=== PATIENT | female | born 1935 | race Caucasian/White ===

== ENCOUNTER 2018-08-30 14:32 | Inpatient (IN) | payer MEDICARE, OTHER ==
[~2018-08-30] VITALS: Ht 149.9 cm; Wt 51.8 kg
[2018-08-30] MEDS ORDERED: OXYcodone/APAP 5/325MG TABLET PO ONE ×2 (15:00→16:30)
[2018-08-30] MEDS ORDERED: ONDANSETRON ODT 4 MG PO ONE (15:00)
[2018-08-30] MEDS ORDERED: ONDANSETRON ODT 4 MG ONE (15:14)
[2018-08-30] MEDS ORDERED: OXYcodone/APAP 5/325MG TABLET ONE ×2 (15:14→16:28)
[2018-08-30 16:52] LABS: BASOPHILS # (AUTO) 0.01 x10^3/uL (0-0.1); BASOPHILS % (AUTO) 0 % (0-1); EOSINOPHILS # (AUTO) 0.06 x10^3/uL (0-0.4); EOSINOPHILS % (AUTO) 1 % (1-7); LYMPHOCYTES # (AUTO) 1.54 x10^3/uL (1-3.4); LYMPHOCYTES % (AUTO) 18 % (22-44); MD NO; MEAN CORPUSCULAR HEMOGLOBIN 32.9 pg (27.0-34.8); MEAN CORPUSCULAR HGB CONC 33.4 g/dL (32.4-35.8); MEAN CORPUSCULAR VOLUME 98.7 fL (80-100); MEAN PLATELET VOLUME 8.1 fL (7.4-10.4); MONOCYTES # (AUTO) 0.73 x10^3/uL (0.2-0.8); MONOCYTES % (AUTO) 9 % (2-9); NEUTROPHILS # (AUTO) 6.04 x10^3/uL (1.8-6.8); NEUTROPHILS % (AUTO) 72 % (42-75); PLATELET COUNT 260 x10^3/uL (130-400); RED BLOOD COUNT 4.19 x10^6/uL (3.82-5.3); RED CELL DISTRIBUTION WIDTH 13.7 % (9.6-15.2)
[2018-08-30] MEDS ORDERED: SODIUM CHLORIDE FLUSH 10ML SYR IVF ONE (17:00)
[2018-08-30 17:03] LABS: ALBUMIN 3.7 g/dL (3.4-5.0); ANION GAP 8 mmol/L (5-15); CALCIUM 9.1 mg/dL (8.5-10.1); CHLORIDE 110 mmol/L (98-107); CREATININE 0.91 mg/dL (0.55-1.02)
[2018-08-30 17:48] VITALS: BP 201/96
[2018-08-30 19:21] VITALS: BP 155/63
[2018-08-30] MEDS ORDERED: ONDANSETRON 4 MG TABLET PO PRN (21:00)
[2018-08-30] MEDS ORDERED: ONDANSETRON 2MG/ML, 2ML IV PRN (21:00)
[2018-08-30] MEDS ORDERED: ALUMINUM/MAG/SIMETHICONE 30 ML UDC PO PRN (21:00)
[2018-08-30] MEDS ORDERED: morphine SULFATE 10 MG/ML, 1ML IVPush PRN (21:00)
[2018-08-30] MEDS: OXYcodone IR 5MG TABLET PO PRN (21:53)
[2018-08-30 22:12] VITALS: BP 161/77
[2018-08-30] MEDS: NEBIVOLOL HCL 5 MG TABLET PO SCH (22:15)
[2018-08-30] MEDS: CALCIUM CARBONATE 500 MG TABLET PO SCH (22:15)
[2018-08-30] MEDS: CHOLECALCIFEROL 1,000 UNIT TABLET PO SCH (22:15)
[2018-08-30] MEDS: ACETAMINOPHEN 500 MG TABLET PO SCH (22:15)
[2018-08-31 00:45] VITALS: BP 124/56
[2018-08-31] MEDS: ACETAMINOPHEN 500 MG TABLET PO SCH ×3 (04:44→21:44)
[2018-08-31 05:06] LABS: BASOPHILS # (AUTO) 0.02 x10^3/uL (0-0.1); BASOPHILS % (AUTO) 0 % (0-1); EOSINOPHILS # (AUTO) 0.04 x10^3/uL (0-0.4); EOSINOPHILS % (AUTO) 1 % (1-7); LYMPHOCYTES % (AUTO) 32 % (22-44); MD NO; MEAN CORPUSCULAR HEMOGLOBIN 33.4 pg (27.0-34.8); MEAN CORPUSCULAR HGB CONC 33.8 g/dL (32.4-35.8); MEAN CORPUSCULAR VOLUME 98.7 fL (80-100); MEAN PLATELET VOLUME 8.4 fL (7.4-10.4); MONOCYTES # (AUTO) 0.73 x10^3/uL (0.2-0.8); MONOCYTES % (AUTO) 15 % (2-9); NEUTROPHILS # (AUTO) 2.46 x10^3/uL (1.8-6.8); NEUTROPHILS % (AUTO) 52 % (42-75); PLATELET COUNT 193 x10^3/uL (130-400); RED BLOOD COUNT 3.99 x10^6/uL (3.82-5.3); RED CELL DISTRIBUTION WIDTH 13.5 % (9.6-15.2)
[2018-08-31 05:07] LABS: ALBUMIN 3.1 g/dL (3.4-5.0); ANION GAP 3 mmol/L (5-15); CALCIUM 9.2 mg/dL (8.5-10.1); CHLORIDE 113 mmol/L (98-107)
[2018-08-31 05:11] LABS: ALANINE AMINOTRANSFERASE 35 U/L (12-78); ALKALINE PHOSPHATASE 61 U/L (45-117); BILIRUBIN,TOTAL 0.6 mg/dL (0.2-1.0); CREATININE 0.62 mg/dL (0.55-1.02); TOTAL PROTEIN 6.4 g/dL (6.4-8.2)
[2018-08-31 07:12] VITALS: BP 140/59
[2018-08-31] MEDS: LOSARTAN 25MG TABLET PO SCH (08:51)
[2018-08-31] MEDS: OXYcodone IR 5MG TABLET PO PRN ×2 (08:51→18:35)
[2018-08-31 11:56] VITALS: BP 145/69
[2018-08-31 15:47] VITALS: BP 148/68
[2018-08-31 18:35] VITALS: BP 146/85
[2018-08-31] MEDS: CALCIUM CARBONATE 500 MG TABLET PO SCH (21:44)
[2018-08-31] MEDS: NEBIVOLOL HCL 5 MG TABLET PO SCH (21:46)
[2018-08-31] MEDS: CHOLECALCIFEROL 1,000 UNIT TABLET PO SCH (21:46)
[2018-09-01 01:14] VITALS: BP 152/78
[2018-09-01] MEDS: OXYcodone IR 5MG TABLET PO PRN ×3 (03:05→17:37)
[2018-09-01] MEDS: ACETAMINOPHEN 500 MG TABLET PO SCH ×2 (05:25→13:56)
[2018-09-01 07:49] VITALS: BP 162/71
[2018-09-01] MEDS: LOSARTAN 25MG TABLET PO SCH (08:48)
[2018-09-01 12:34] VITALS: BP 162/75
== END 2018-09-01 20:00 | disposition home health service (06) | DRG 185 ==
LOC: ED 16:48 → EDIP 17:12 → 3NE 17:40
PROVIDERS: ADMIT Internal Medicine; ATTEND Internal Medicine
DX: S22.41XA Multiple fractures of ribs, right side, initial encounter for closed fracture (principal); S51.011A Laceration without foreign body of right elbow, initial encounter; I10 Essential (primary) hypertension; E78.5 Hyperlipidemia, unspecified; Z79.82 Long term (current) use of aspirin; Z66 Do not resuscitate; Z96.1 Presence of intraocular lens; W01.0XXA Fall on same level from slipping, tripping and stumbling without subsequent striking against object, initial encounter; Y93.89 Activity, other specified; Y92.89 Other specified places as the place of occurrence of the external cause; Y99.8 Other external cause status; S50.01XA Contusion of right elbow, initial encounter
CPT/HCPCS: 36415; 71250; 80048; 80053; 82040; 85025; 93005; 99285; G0378; Q0162

== ENCOUNTER 2018-11-09 14:57 | Emergency (ER) | payer MEDICARE, OTHER ==
[~2018-11-09] VITALS: Ht 149.9 cm; Wt 51.6 kg
[2018-11-09 15:09] VITALS: BP 174/74
== END 2018-11-09 16:49 | disposition home or self-care (01) ==
LOC: ED 16:43
DX: S83.412A Sprain of medial collateral ligament of left knee, initial encounter (principal); I10 Essential (primary) hypertension; W01.0XXA Fall on same level from slipping, tripping and stumbling without subsequent striking against object, initial encounter; Y93.89 Activity, other specified; Y92.410 Unspecified street and highway as the place of occurrence of the external cause; Y99.8 Other external cause status
CPT/HCPCS: 99283